=== PATIENT | male | born 1960 | race African-American/Black ===

== ENCOUNTER 2018-10-17 15:31 | Emergency (ER) | payer OTHER ==
[~2018-10-17] VITALS: Ht 160 cm; Wt 75.3 kg
[~2018-10-17 15:31] MED LIST: AMLO10TA8 PO; ATOR40TA PO; Aspirin PO; CLON0.2T PO; LISI-334 PO; METF500T16 PO; RANI150T2 PO; SPIR25TA5 PO; TICA90TA PO
[2018-10-17 15:46] VITALS: BP 186/102
[2018-10-17] MEDS ORDERED: cefTRIAXone IM 1 GM VIAL IM ONE (16:00)
[2018-10-17] MEDS ORDERED: PENI500T PO (16:35)
[2018-10-17] MEDS ORDERED: TRAM-48 PO (16:35)
--- NOTE | 2018-10-17 16:36 | PHYS DOC ---
Past Medical History Past Medical History: Diabetes-Type II, GERD, Hypertension Past Surgical History: Other Additional Past Surgical Histo: Bleeding ulcer Alcohol Use: Occasionally Drug Use: None Adult General Chief Complaint Chief Complaint: DENTAL PROBLEM HPI HPI Patient is a 58 year old male who presents with complaining of facial swelling. Patient complaining of right lower jaw and facial edema for 2 weeks and mild dental pain does fever and chills, problems swallowing, smoking. Patient did not seek medical attention and took [id number] Tylenol with partial improvement of his pain. Review of Systems Review of Systems Constitutional: Denies fever or chills [] Eyes: Denies change in visual acuity, redness, or eye pain [] HENT: Denies nasal congestion or sore throat [] Respiratory: Denies cough or shortness of breath [] Cardiovascular: No additional information not addressed in HPI [] GI: Denies abdominal pain, nausea, vomiting, bloody stools or diarrhea [] : Denies dysuria or hematuria [] Musculoskeletal: Denies back pain or joint pain [] Integument: Denies rash or skin lesions [] Neurologic: Denies headache, focal weakness or sensory changes [] Endocrine: Denies polyuria or polydipsia [] All other systems were reviewed and found to be within normal limits, except as documented in this note. Current Medications Current Medications Current Medications Medications (Trade) Dose Ordered Sig/Ileana Start Time Stop Time Status Last Admin Dose Admin Ceftriaxone Sodium (Rocephin Im) 1 gm 1X ONCE 10/17/18 16:00 10/17/18 16:01 DC 10/17/18 16:29 1 GM Allergies Allergies Allergies Coded Allergies Type Severity Reaction Last Updated Verified shellfish derived Allergy Intermediate 02/03/15 Yes Physical Exam Physical Exam Constitutional: Well developed, well nourished,mild distress, non-toxic appearance. [] HENT: Normocephalic, atraumatic, right lower jaw edema without sign of abscess, poor dental hygiene and several missing tooth and cavities, remaining root on tooth #31 with tenderness and inflamed gum around the rooth, bilateral external ears normal, oropharynx moist, no oral exudates, nose normal. [] Eyes: PERRLA, EOMI, conjunctiva normal, no discharge. [] Neck: Normal range of motion, no tenderness, supple, no stridor. [] Cardiovascular:Heart rate regular rhythm, no murmur [] Lungs & Thorax: Bilateral breath sounds clear to auscultation [] Neurologic: Alert and oriented X 3, normal motor function, normal sensory function, no focal deficits noted. [] Psychologic: Affect normal, judgement normal, mood normal. [] Current Patient Data Vital Signs Vital Signs Date Time Temp Pulse Resp B/P (MAP) Pulse Ox O2 Delivery O2 Flow Rate FiO2 10/17/18 15:46 97.6 74 18 186/102 (130) 96 Room Air 97.6 Lab Values Laboratory Tests Test 10/17/18 16:28 Glucose (Fingerstick) 121 mg/dL (70-99) H EKG EKG [] Radiology/Procedures Radiology/Procedures [] Course & Med Decision Making Course & Med Decision Making Pertinent Labs and Imaging studies reviewed. (See chart for details) Evaluation of patient in ER showed 58-year-old male patient presented with facial cellulitis and dental abscess for 2 weeks. Patient had blood sugar of 121 and treated with Rocephin in ER. Patient was advised to follow-up with the dentist in few days. Dragon Disclaimer Dragon Disclaimer This electronic medical record was generated, in whole or in part, using a voice recognition dictation system. Departure Departure Impression: Primary Impression: Facial cellulitis Additional Impression: Dental abscess Disposition: 01 HOME, SELF-CARE (at 1631) Condition: IMPROVED Referrals: UNKNOWN PCP NAME (PCP) Patient Instructions: Cellulitis, Dental Abscess Additional Instructions: Follow-up with your dentist in 3-5 days Return to ER if not getting better Scripts Tramadol Hcl (ULTRAM) 50 Mg Tablet 50 MG PO Q6HRS PRN for PAIN, #14 TAB 0 Refills Prov: BALDOMERO NICE MD 10/17/18 Penicillin V Potassium (PENICILLIN V POTASSIUM) 500 Mg Tablet 2 TAB PO Q12HR, #40 TAB Prov: BALDOMERO NICE MD 10/17/18 Problem Qualifiers BALDOMERO NICE MD October 17, 2018 16:36
== END 2018-10-17 16:49 | disposition home or self-care (01) ==
LOC: ER 15:31
DX: K04.7 Periapical abscess without sinus (principal); L03.211 Cellulitis of face; E11.9 Type 2 diabetes mellitus without complications; K21.9 Gastro-esophageal reflux disease without esophagitis; I10 Essential (primary) hypertension; Z91.013 Allergy to seafood
CPT/HCPCS: 82962; 96372; 99283; J0696

== ENCOUNTER 2019-09-10 12:34 | Inpatient (IN) | payer OTHER ==
[~2019-09-10] VITALS: Ht 157.5 cm; Wt 75.5 kg
[2019-09-10] VITALS (9 sets, daily range): BP systolic 110–146; BP diastolic 70–85
[~2019-09-10 12:34] MED LIST changes: +PENI500T PO; +TRAM-48 PO
[2019-09-10] MEDS ORDERED: ASPIRIN CHEWABLE 81 MG TABLET. PO ONE (13:00)
[2019-09-10] MEDS ORDERED: KETOROLAC 30 MG/ML VIAL. IV ONE (13:00)
--- NOTE | 2019-09-10 13:21 | RAD ---
EXAM: Chest, single view. HISTORY: Chest pain. COMPARISON: None. FINDINGS: A frontal view of the chest obtained. There is no infiltrate, pleural effusion or pneumothorax. The heart is normal in size. IMPRESSION: No acute pulmonary finding. Electronically signed by: Clarissa Ramirez MD (09/10/2019 1:19 PM) [facility]
[2019-09-10 13:22] LABS: BASO % 1 % (0-3); EOS # 0.2 x10^3/uL (0.0-0.7); EOS % 2 % (0-3); HEMATOCRIT 43.4 % (39.0-53.0); HEMOGLOBIN 14.3 g/dL (13.0-17.5); LYMPH % 19 % (24-48); MEAN CORPUSCULAR HEMOGLOBIN 27 pg (25-35); MEAN CORPUSCULAR HGB CONC 33 g/dL (31-37); MEAN CORPUSCULAR VOLUME 83 fL (79-100); MONO # 0.8 x10^3/uL (0.0-1.1); MONO % 7 % (0-9); NEUT # 7.4 x10^3/uL (1.8-7.7); NEUT % 72 % (31-73); PLATELET COUNT 235 x10^3/uL (140-400); RED BLOOD COUNT 5.26 x10^6/uL (4.30-5.70); RED CELL DISTRIBUTION WIDTH 14.6 % (11.5-14.5); WHITE BLOOD COUNT 10.3 x10^3/uL (4.0-11.0)
--- NOTE | 2019-09-10 13:25 | EKG ---
[facility] [address] [place] [address] Test Date: 2019-09-10 Test Time: 12:44:56 Pat Name: BEN BRISENO Department: Room: Gender: M [employer] Displays Analyst: : [id number] Requested By: NORA MONTELONGO Order Number: [id number] Reading MD: Bear Blue MD Measurements Intervals [place] Rate: 100 P: FL: QRS: 31 QRSD: 92 T: 128 QT: 352 QTc: 457 Interpretive Statements ATRIAL FIB./FLUTTER WITH RAPID VENTRICULAR RESPONSE NON-SPECIFIC ST/T CHANGES Electronically Signed On 09-10-2019 15:16:19 CDT by Bear Blue MD
[2019-09-10 13:31] LABS: CALCIUM 9.3 mg/dL (8.5-10.1); GFR 41.3; POTASSIUM 4.5 mmol/L (3.5-5.1)
[2019-09-10 13:37] LABS: ALBUMIN 3.6 g/dL (3.4-5.0); ALBUMIN/GLOBULIN RATIO 0.9 (1.0-1.7); MAGNESIUM 1.5 mg/dL (1.8-2.4); TOTAL BILIRUBIN 0.3 mg/dL (0.2-1.0); TOTAL PROTEIN 7.4 g/dL (6.4-8.2)
--- NOTE | 2019-09-10 13:45 | PHYS DOC ---
Past Medical History Past Medical History: Diabetes-Type II, GERD, Hypertension Past Surgical History: Other Additional Past Surgical Histo: Bleeding ulcer Smoking Status: Never Smoker Alcohol Use: Occasionally Drug Use: None General Adult EDM: Chief Complaint: CHEST PAIN HPI: HPI: Patient is a 59-year-old male who presents with a 2-day history of left-sided chest pain. He states the pain does not radiate. He has been somewhat short of breath. He denies any nausea or diaphoresis. He states this happens occasionally but not often. There is nothing that he did at home to make the discomfort any better or worse. He describes the pain is relatively sharp. [] Review of Systems: Review of Systems: Constitutional: Denies fever or chills. [] Eyes: Denies change in visual acuity. [] HENT: Denies nasal congestion or sore throat. [] Respiratory: Denies cough or shortness of breath. [] Cardiovascular: Per HPI. [] GI: Denies abdominal pain, nausea, vomiting, bloody stools or diarrhea. [] : Denies dysuria. [] Musculoskeletal: Denies back pain or joint pain. [] Integument: Denies rash. [] Neurologic: Denies headache, focal weakness or sensory changes. [] Endocrine: Denies polyuria or polydipsia. [] Lymphatic: Denies swollen glands. [] Psychiatric: Denies depression or anxiety. [] Heart Score: Risk Factors: Risk Factors: DM, Current or recent (<one month) smoker, HTN, HLP, family history of CAD, obesity. Risk Scores: Score 0 - 3: 2.5% MACE over next 6 weeks - Discharge Home Score 4 - 6: 20.3% MACE over next 6 weeks - Admit for Clinical Observation Score 7 - 10: 72.7% MACE over next 6 weeks - Early Invasive Strategies Current Medications: Current Medications Medications (Trade) Dose Ordered Sig/Ileana Start Time Stop Time Status Last Admin Dose Admin Aspirin (Aspirin Chewable) 324 mg 1X ONCE 09/10/19 13:00 09/10/19 13:01 DC 09/10/19 13:15 324 MG Ketorolac Tromethamine (Toradol 30mg Vial) 30 mg 1X ONCE 09/10/19 13:00 09/10/19 13:04 DC 09/10/19 13:16 30 MG Allergies: Allergies: Allergies Coded Allergies Type Severity Reaction Last Updated Verified shellfish derived Allergy Intermediate 02/03/15 Yes Physical Exam: PE: Constitutional: Well developed, well nourished, mild distress, non-toxic appearance. [] HENT: Normocephalic, atraumatic, bilateral external ears normal, oropharynx moist, no oral exudates, nose normal. [] Eyes: PERRLA, EOMI, conjunctiva normal, no discharge. [] Neck: Normal range of motion, no tenderness, supple, no stridor. [] Cardiovascular: Tachycardic irregularly irregular [] Lungs & Thorax: Bilateral breath sounds clear to auscultation [] Abdomen: Bowel sounds normal, soft, no tenderness, no masses, no pulsatile masses. [] Skin: Warm, dry, no erythema, no rash. [] Back: No tenderness, no CVA tenderness. [] Extremities: No tenderness, no cyanosis, no clubbing, ROM intact, no edema. [] Neurologic: Alert and oriented X 3, normal motor function, normal sensory function, no focal deficits noted. [] Psychologic: Anxious [] Current Patient Data: Labs: Laboratory Tests Test 09/10/19 13:09 White Blood Count 10.3 x10^3/uL (4.0-11.0) Red Blood Count 5.26 x10^6/uL (4.30-5.70) Hemoglobin 14.3 g/dL (13.0-17.5) Hematocrit 43.4 % (39.0-53.0) Mean Corpuscular Volume 83 fL (79-100) Mean Corpuscular Hemoglobin 27 pg (25-35) Mean Corpuscular Hemoglobin Concent 33 g/dL (31-37) Red Cell Distribution Width 14.6 % (11.5-14.5) H Platelet Count 235 x10^3/uL (140-400) Neutrophils (%) (Auto) 72 % (31-73) Lymphocytes (%) (Auto) 19 % (24-48) L Monocytes (%) (Auto) 7 % (0-9) Eosinophils (%) (Auto) 2 % (0-3) Basophils (%) (Auto) 1 % (0-3) Neutrophils # (Auto) 7.4 x10^3/uL (1.8-7.7) Lymphocytes # (Auto) 2.0 x10^3/uL (1.0-4.8) Monocytes # (Auto) 0.8 x10^3/uL (0.0-1.1) Eosinophils # (Auto) 0.2 x10^3/uL (0.0-0.7) Basophils # (Auto) 0.0 x10^3/uL (0.0-0.2) Sodium Level 144 mmol/L (136-145) Potassium Level 4.5 mmol/L (3.5-5.1) Chloride Level 108 mmol/L (98-107) H Carbon Dioxide Level 22 mmol/L (21-32) Anion Gap 14 (6-14) Blood Urea Nitrogen 27 mg/dL (8-26) H Creatinine 2.0 mg/dL (0.7-1.3) H Estimated GFR (Cockcroft-Gault) 41.3 BUN/Creatinine Ratio 14 (6-20) Glucose Level 145 mg/dL (70-99) H Calcium Level 9.3 mg/dL (8.5-10.1) Magnesium Level 1.5 mg/dL (1.8-2.4) L Total Bilirubin 0.3 mg/dL (0.2-1.0) Aspartate Amino Transferase (AST) 20 U/L (15-37) Alanine Aminotransferase (ALT) 30 U/L (16-63) Alkaline Phosphatase 59 U/L (46-116) Total Protein 7.4 g/dL (6.4-8.2) Albumin 3.6 g/dL (3.4-5.0) Albumin/Globulin Ratio 0.9 (1.0-1.7) L Ethyl Alcohol Level < 10 mg/dL (0-10) Laboratory Tests 09/10/19 13:09 Laboratory Tests 09/10/19 13:09 Vital Signs: Vital Signs Date Time Temp Pulse Resp B/P (MAP) Pulse Ox O2 Delivery O2 Flow Rate FiO2 09/10/19 12:40 97.7 98 16 160/89 (112) 99 Room Air 97.7 EKG: EKG: EKG: Atrial fibrillation with rapid ventricular response rate 110 no obvious associated ischemic ST-T changes [] Radiology/Procedures: Radiology/Procedures: [] Impression: REASON: chest pain PROCEDURE: CHEST AP ONLY EXAM: Chest, single view. HISTORY: Chest pain. COMPARISON: None. FINDINGS: A frontal view of the chest obtained. There is no infiltrate, pleural effusion or pneumothorax. The heart is normal in size. IMPRESSION: No acute pulmonary finding. Course & Med Decision Making: Course & Med Decision Making Pertinent Labs and Imaging studies reviewed. (See chart for details) [ED course: Evaluation reveals a 59-year-old male with chest pain ultimately had atrial fibrillation with rapid ventricular response. Patient was given an aspirin Lovenox 1 mg/kg was also given a Cardizem bolus and started on Cardizem drip. Troponin was slightly elevated likely rate related. We will go ahead and admit to the hospitalist with a cardiology consult. CRITICAL CARE: Time spent was 35 minutes. This includes medical management, evaluation, reevaluation, discussion with consultants and family. Critical Care does NOT include time spent on separately billed procedures.] Hakeem Disclaimer: Dragon Disclaimer: This electronic medical record was generated, in whole or in part, using a voice recognition dictation system. Departure Departure Impression: Primary Impression: Atrial fibrillation with rapid ventricular response Additional Impression: NSTEMI (non-ST elevated myocardial infarction) Disposition: 09 ADMITTED INPATIENT Admitting Physician: MILAGRO Condition: GUARDED Referrals: UNKNOWN PCP NAME (PCP) NORA MONTELONGO DO Sep 10, 2019 13:45
[2019-09-10] MEDS ORDERED: DILTIAZEM HCL 125 MG in IV NORMAL SALINE 100ML 100 ML IV PRN (14:00)
[2019-09-10] MEDS ORDERED: ONDANSETRON PF 4 MG/2 ML VIAL. IV PRN (14:00)
[2019-09-10] MEDS ORDERED: dilTIAZem IV PUSH 25 MG/5 ML VIAL IVP ONE (14:00)
[2019-09-10] MEDS ORDERED: ACETAMINOPHEN 325 MG TABLET. PO PRN (14:00)
[2019-09-10] MEDS ORDERED: NITROGLYCERIN SUBLINGUAL 0.4 MG BOTTLE OF 25. SL PRN (14:00)
--- NOTE | 2019-09-10 14:47 | PDOC2 ---
JANELLE JARA WRIST LINER 09/10/19 1447: CARDIAC CONSULT DATE OF CONSULT Date of Consult DATE: 09/10/19 TIME: 14:35 REASON FOR CONSULT Reason for Consult: AFIB RVR, NSTEMI REFERRING PHYSICIAN Referring Physician: Faustino SOURCE Source: Chart review, Patient HISTORY OF PRESENT ILLNESS HISTORY OF PRESENT ILLNESS This is a pleasant 59 yo male admitted for complains of chest pain and palpitations. Reports that Monday he started having sharp mid chest pain that was nonradiating. Positive for palpitations and LUGO. Reports no n/v. Denies any leg swelling, orthopnea or PND. No prior hx of BRAYAN, VTE or arrhythmia. He ispositive for CAD with past stent, HTN, CKD, and HLP and DM. She has not been seen by cardiology and nephrology since 2015 but has been seeing his PCP Dr. Kirby regularly who is providing his refills. His last PUD was 6 yrs ago. He has been complaint with his medications including plavix, ASA, statin, lisinopril. Reported that his BG has been controlled per his last A1C which he said marginal. Reports that he checks his BP at home and per his number its controlled. PAST MEDICAL HISTORY Cardiovascular: CAD, CHF, HTN, Hyperlipidemia Pulmonary: No pertinent hx CENTRAL NERVOUS SYSTEM: Other (No pertinent history) GI: GERD, Peptic Ulcer disease Heme/Onc: No pertinent hx Hepatobiliary: No pertinent hx Psych: No pertinent hx Musculoskeletal: Osteoarthritis Rheumatologic: No pertinent hx Infectious disease: No pertinent hx ENT: No pertinent hx Renal/: Chronic renal insuff (ckd3) Endocrine: Diabetes (2) Dermatology: No pertinent hx PAST SURGICAL HISTORY Past Surgical History: Other (PCI) FAMILY HISTORY Family History: Hypertension SOCIAL HISTORY Smoke: No ALCOHOL: none Drugs: None Lives: with Family CURRENT MEDICATIONS CURRENT MEDICATIONS Current Medications Medications (Trade) Dose Ordered Sig/Ileana Route PRN Reason Start Time Stop Time Status Last Admin Dose Admin Aspirin (Aspirin Chewable) 324 mg 1X ONCE PO 09/10/19 13:00 09/10/19 13:01 DC 09/10/19 13:15 Ketorolac Tromethamine (Toradol 30mg Vial) 30 mg 1X ONCE IV 09/10/19 13:00 09/10/19 13:04 DC 09/10/19 13:16 Diltiazem HCl (Cardizem Iv Push) 20 mg 1X ONCE IVP 09/10/19 14:00 09/10/19 14:01 DC 09/10/19 14:05 Diltiazem HCl 125 mg/Sodium Chloride 125 ml @ 5 mls/hr CONT PRN IV SEE I/O RECORD 09/10/19 14:00 09/10/19 14:05 Enoxaparin Sodium (Lovenox 80mg Syringe) 80 mg 1X ONCE SQ 09/10/19 14:00 09/10/19 14:01 DC 09/10/19 14:06 ALLERGIES ALLERGIES: Coded Allergies: shellfish derived (Verified Allergy, Intermediate, 02/03/15) ROS Review of System 14 point ROS evaluated with pertinent positives noted per HPI PHYSICAL EXAM General: Alert, Oriented X3, Cooperative, No acute distress HEENT: Atraumatic, Mucous membr. moist/pink Lungs: Clear to auscultation, Normal air movement Heart: Other (AFIB) Abdomen: Soft, No tenderness Extremities: No cyanosis, No edema Skin: No breakdown, No significant lesion Neuro: Normal speech, Sensation intact Psych/Mental Status: Mental status NL, Mood NL MUSCULOSKELETAL: Osteoarthritic changes both hands VITALS/I&O VITALS/I&O: Vital Signs Date Time Temp Pulse Resp B/P (MAP) Pulse Ox O2 Delivery O2 Flow Rate FiO2 09/10/19 14:05 121 133/85 09/10/19 12:40 97.7 16 99 Room Air 97.7 LABS Lab: Laboratory Tests Test 09/10/19 13:09 White Blood Count 10.3 x10^3/uL (4.0-11.0) Red Blood Count 5.26 x10^6/uL (4.30-5.70) Hemoglobin 14.3 g/dL (13.0-17.5) Hematocrit 43.4 % (39.0-53.0) Mean Corpuscular Volume 83 fL (79-100) Mean Corpuscular Hemoglobin 27 pg (25-35) Mean Corpuscular Hemoglobin Concent 33 g/dL (31-37) Red Cell Distribution Width 14.6 % (11.5-14.5) H Platelet Count 235 x10^3/uL (140-400) Neutrophils (%) (Auto) 72 % (31-73) Lymphocytes (%) (Auto) 19 % (24-48) L Monocytes (%) (Auto) 7 % (0-9) Eosinophils (%) (Auto) 2 % (0-3) Basophils (%) (Auto) 1 % (0-3) Neutrophils # (Auto) 7.4 x10^3/uL (1.8-7.7) Lymphocytes # (Auto) 2.0 x10^3/uL (1.0-4.8) Monocytes # (Auto) 0.8 x10^3/uL (0.0-1.1) Eosinophils # (Auto) 0.2 x10^3/uL (0.0-0.7) Basophils # (Auto) 0.0 x10^3/uL (0.0-0.2) Sodium Level 144 mmol/L (136-145) Potassium Level 4.5 mmol/L (3.5-5.1) Chloride Level 108 mmol/L (98-107) H Carbon Dioxide Level 22 mmol/L (21-32) Anion Gap 14 (6-14) Blood Urea Nitrogen 27 mg/dL (8-26) H Creatinine 2.0 mg/dL (0.7-1.3) H Estimated GFR (Cockcroft-Gault) 41.3 BUN/Creatinine Ratio 14 (6-20) Glucose Level 145 mg/dL (70-99) H Calcium Level 9.3 mg/dL (8.5-10.1) Magnesium Level 1.5 mg/dL (1.8-2.4) L Total Bilirubin 0.3 mg/dL (0.2-1.0) Aspartate Amino Transferase (AST) 20 U/L (15-37) Alanine Aminotransferase (ALT) 30 U/L (16-63) Alkaline Phosphatase 59 U/L (46-116) Troponin I Quantitative 0.232 ng/mL (0.000-0.055) AT-Vfg-I-Type Natriuretic Peptide 1738 pg/mL (0-124) H Total Protein 7.4 g/dL (6.4-8.2) Albumin 3.6 g/dL (3.4-5.0) Albumin/Globulin Ratio 0.9 (1.0-1.7) L Ethyl Alcohol Level < 10 mg/dL (0-10) Laboratory Tests 09/10/19 13:09 Laboratory Tests 09/10/19 13:09 ECHOCARDIOGRAM ECHOCARDIOGRAM <Conclusion> Normal LV systolic function and wall motion at rest. EF 65% No significant valvular abnormalities. DATE: 02/03/15 1522 HEART CATH HEART CATH CORONARY FINDINGS: LM: is a short large caliber vessel with normal angiographic appearance. LAD: is a moderate caliber vessel with mild luminal irregularities. D1: is a small to moderate caliber bifurcating vessel with mild diffuse irregularities of up to 30% Ramus: is a moderate caliber vessel with normal angiographic appearance. LCx: is a moderate caliber non-dominant vessel with a proximal 80% stenosis. The distal vessel has mild luminal irregularities. Two small obtuse marginal vessels and LPL vessels have mild diffuse irregularities of up to 30%. RCA: is a moderate caliber vessel with long segment of proximal to mid 50% stenosis. PDA: small caliber vessel with mild luminal irregularities. Hemodynamics: LVEDP 16 mm Hg. No LV to AO gradient on pullback. Limited right common femoral angiography revealed a higher than normal bifurcation pattern without significant obstructive disease and suitable anatomy for closure device placement. INTERVENTIONAL TECHNIQUE: PCI OF THE LCX Bivalirudin was used for anticoagulation. Through a 6Fr EBU 4.0 guide catheter, a 0.014'' Prowater wire was advanced to the distal LPL. Next, a Trek 2.5/12 balloon was used to perform angioplasty at a maximum of 12 ethan. The lesion was then stented with a Resolute 2.75/18 ELDA at 12 ethan. Final post-PCI angiography revealed excellent stent expansion with DIDIER 3 flow in the vessel and no evidence of proximal guide or distal wire related complications. The right groin access site was closed with a Mynx José Miguel closure device. The patient had a small hematoma which was resolved with manual pressure. The patient was given 180mg of Ticagrelor in the lab. Total contrast dose: 50 ml Conclusion 1. Normal LVEDP 2. Two vessel coronary artery disease. 3. Successful PCI of the Lcx with implantation of a Resolute 2.75/18 ELDA. Recommendations Cardiac Rehabilitation Referral Aggressive Medical Therapy ASA 81mg daily indefinitely Ticagrelor 90mg bid for 1 month, then switch to Plavix 75mg daily Follow up in cardiology clinic in 4 weeks. If patient continues to have chest pain, could consider PCI of the RCA. DATE: 02/04/15 0959 ASSESSMENT/PLAN ASSESSMENT/PLAN 1. NSTEMI: possibly type 2 demand mediated. CP probably more from AFIB RVR 2. AFIB with RVR: new onset. likely started Monday. Now controlled with cardizem 3. CKD3: baseline Cr at low 2s CrCl 43 4. DM2: on home metformin 5. HTN: controlled 6. HLP 7. CAD; past ELDA to LCx 2014 moderate disease to RCA 8. Iodine allergy: anaphylaxis with shellfish 9. Hx of remote PUD Recommendations 1. Lovenox x1 given in ED. ASA has been given. Plan to continue home plavix and will discuss further tomorrow as far as anticoagulation moving forward. Eliquis vs coumadin 2. Bolus cardizem was given and drip started. Will stop the drip and start on metoprolol q6 po 3. Hold other BP meds for now to allow BB optimization. 4. Continue home statin. Start on low dose daily pepcid for GI prophylaxis. 5. Trend troponin, check TSH and lipids. TTE 6. Will consider for ischemic workup pending clinical trend. HANH BRIGGS MD 09/10/191957: CARDIAC CONSULT ASSESSMENT/PLAN ASSESSMENT/PLAN Patient seen and examined. Agree with TRASH COLLECTOR SUPERVISOR's assessment and plan. NSTEMI most prob demand ischemia AF new onset, rate better controlled Agree with changing CZM to BB Start eliquis for stroke prophylaxis tomorrow since he received lovenox today Check 2D echo to assess LVF Plan outpatient ischemic evaluation Thank you for your consultation JANELLE JARA APRN Sep 10, 2019 14:47 HANH BRIGGS MD Sep 10, 2019 19:58
[2019-09-10] MEDS ORDERED: HYDR-2869 PO (15:55)
[2019-09-10] MEDS ORDERED: METF10007 PO (15:55)
[2019-09-10] MEDS ORDERED: ATOR20TA58 PO (15:55)
[2019-09-10] MEDS ORDERED: FAMO20TA5 PO (15:55)
--- NOTE | 2019-09-10 16:00 | NUR ---
Patient arrived to unit from ER via wheelchair. Patient transferred by himself. Cardizem gtt running at 5mls/hr. Vitals stable. Call light within reach, patient alert and oriented. Will continue to monitor.
[2019-09-10] MEDS: METOPROLOL TART IMMED RELEASE 25 MG TABLET. PO SCH ×2 (17:27→23:07)
[2019-09-10] MEDS ORDERED: DEXTROSE 50% 25 GM / 50ML DISP.SYRIN. IV PRN (17:30)
--- NOTE | 2019-09-10 18:13 | PDOC1 ---
History and Physical Date of Admission Date of Admission DATE: 09/10/19 TIME: 18:07 Identification/Chief Complaint Chief Complaint chest pain, palpitations Source Source: Chart review, Patient History of Present Illness History of Present Illness Mr. Walton is a 59-year-old male who presents with a 2-day history of left-sided chest pain. He states the pain does not radiate. He has been somewhat short of breath. He denies any nausea or diaphoresis. He states this happens occasionally but not often. There is nothing that he did at home to make the discomfort any better or worse. He describes the pain is relatively sharp. Past Medical History Cardiovascular: CAD, CHF, HTN, Hyperlipidemia Pulmonary: No pertinent hx CENTRAL NERVOUS SYSTEM: Other (No pertinent history) GI: GERD, Peptic Ulcer disease Heme/Onc: No pertinent hx Hepatobiliary: No pertinent hx Psych: No pertinent hx Musculoskeletal: Osteoarthritis Rheumatologic: No pertinent hx Infectious disease: No pertinent hx ENT: No pertinent hx Renal/: Chronic renal insuff (ckd3) Endocrine: Diabetes (2) Dermatology: No pertinent hx Past Surgical History Past Surgical History: Other (PCI) Family History Family History: Hypertension Social History Smoke: No ALCOHOL: none Drugs: None Current Problem List Problem List Problems Medical Problems: (1) Atrial fibrillation with rapid ventricular response Status: Acute (2) NSTEMI (non-ST elevated myocardial infarction) Status: Acute Current Medications Current Medications Current Medications Aspirin (Aspirin Chewable) 324 mg 1X ONCE PO Last administered on 09/10/19at 13:15; Start 09/10/19 at 13:00; Stop 09/10/19 at 13:01; Status DC Ketorolac Tromethamine (Toradol 30mg Vial) 30 mg 1X ONCE IV Last administered on 09/10/19at 13:16; Start 09/10/19 at 13:00; Stop 09/10/19 at 13:04; Status DC Diltiazem HCl (Cardizem Iv Push) 20 mg 1X ONCE IVP Last administered on 09/10/19at 14:05; Start 09/10/19 at 14:00; Stop 09/10/19 at 14:01; Status DC Diltiazem HCl 125 mg/Sodium Chloride 125 ml @ 5 mls/hr CONT PRN IV SEE I/O RECORD Last administered on 09/10/19at 14:05; Start 09/10/19 at 14:00; Stop 09/10/19 at 15:35; Status DC Enoxaparin Sodium (Lovenox 80mg Syringe) 80 mg 1X ONCE SQ Last administered on 09/10/19at 14:06; Start 09/10/19 at 14:00; Stop 09/10/19 at 14:01; Status DC Ondansetron HCl (Zofran) 4 mg PRN Q8HRS PRN IV NAUSEA/VOMITING; Start 09/10/19 at 14:00; Stop 09/11/19 at 13:59 Acetaminophen (Tylenol) 650 mg PRN Q4HRS PRN PO FEVER; Start 09/10/19 at 14:00; Stop 09/11/19 at 13:59 Nitroglycerin (Nitrostat) 0.4 mg PRN Q5MIN PRN SL CHEST PAIN; Start 09/10/19 at 14:00; Stop 09/11/19 at 13:59 Atorvastatin Calcium (Lipitor) 40 mg QHS PO ; Start 09/10/19 at 21:00 Aspirin (Ecotrin) 81 mg DAILYWBKFT PO ; Start 09/11/19 at 08:00; Stop 09/10/19 at 15:34; Status DC Metoprolol Tartrate (Lopressor) 25 mg Q6HRS PO Last administered on 09/10/19at 17:27; Start 09/10/19 at 18:00 Famotidine (Pepcid) 20 mg QHS PO ; Start 09/10/19 at 21:00 Amlodipine Besylate (Norvasc) 10 mg DAILY PO ; Start 09/11/19 at 09:00; Stop 09/10/19 at 17:45; Status DC Atorvastatin Calcium (Lipitor) 20 mg QHS PO ; Start 09/10/19 at 21:00; Status Cancel Clonidine HCl (Catapres) 0.2 mg BID PO ; Start 09/10/19 at 21:00; Status UNV Famotidine (Pepcid) 20 mg DAILY PO ; Start 09/11/19 at 09:00; Status Cancel Hydralazine HCl (Apresoline) 50 mg BID PO ; Start 09/10/19 at 21:00; Stop 09/10/19 at 17:45; Status DC Lisinopril (Prinivil) 20 mg DAILY PO ; Start 09/11/19 at 09:00; Stop 09/10/19 at 17:45; Status DC Non-Formulary Medication (Metformin Hcl ) 1 tab BID PO ; Start 09/10/19 at 21:00; Status UNV Insulin Human Lispro (HumaLOG) 0-9 UNITS TIDWMEALS SQ ; Start 09/11/19 at 08:00 Dextrose (Dextrose 50%-Water Syringe) 12.5 gm PRN Q15MIN PRN IV SEE COMMENTS; Start 09/10/19 at 17:30 Active Scripts Active [Aspirin] 81 MG Tablet. 81 Mg PO DAILYWBKFT Reported Metformin Hcl 1,000 Mg Tablet 1 Tab PO BID Hydralazine Hcl 50 Mg Tablet 1 Tab PO BID Famotidine 20 Mg Tablet 1 Tab PO DAILY Atorvastatin Calcium 20 Mg Tablet 20 Mg PO QHS Amlodipine Besylate 10 Mg Tablet 1 Tab PO DAILY Clonidine Hcl 0.2 Mg Tablet 0.2 Mg PO BID Lisinopril 20 Mg Tablet 1 Tab PO DAILY Allergies Allergies: Coded Allergies: shellfish derived (Verified Allergy, Intermediate, 02/03/15) ROS General: No: Chills, Night Sweats, Malaise, Appetite, Other PSYCHOLOGICAL ROS: No: Anxiety, Behavioral Disorder, Concentration difficultie, Decreased libido, Depression, Disorientation, Hallucinations, Hostility, Irritablity, Memory difficulties, Mood Swings, Obsessive thoughts, Physical abuse, Sexual abuse, Sleep disturbances, Suicidal ideation, Other Eyes: No Blurry vision, No Decreased vision, No Double vision, No Dry eyes, No Excessive tearing, No Eye Pain, No Itchy Eyes, No Loss of vision, No Photophobia, No Scotomata, No Uses contacts, No Uses glasses, No Other HEENT: No: Heacaches, Visual Changes, Hearing change, Nasal congestion, Nasal discharge, Oral lesions, Sinus pain, Sore Throat, Epistaxis, Sneezing, Snoring, Tinnitus, Vertigo, Vocal changes, Other Respiratory: No: Cough, Hemoptysis, Orthopnea, Pleuritic Pain, Shortness of breath, SOB with excertion, Sputum Changes, Stridor, Tachypnea, Wheezing, Other Cardiovascular: No Chest Pain, No Palpitations, No Orthopnea, No Paroxysmal Noc. Dyspnea, No Edema, No Lt Headedness, No Other Gastrointestinal: No Nausea, No Vomiting, No Abdominal Pain, No Diarrhea, No Constipation, No Melena, No Hematochezia, No Other Genitourinary: No Dysuria, No Frequency, No Incontinence, No Hematuria, No Retention, No Discharge, No Urgency, No Pain, No Flank Pain, No Other, No , No , No , No , No , No , No Musculoskeletal: No Gait Disturbance, No Joint Pain, No Joint Stiffness, No Joint Swelling, No Muscle Pain, No Muscular Weakness, No Pain In:, No Swelling In:, No Other Neurological: No Behavorial Changes, No Bowel/Bladder ControlChng, No Confusion, No Dizziness, No Gait Disturbance, No Headaches, No Impaired Coord/balance, No Memory Loss, No Numbness/Tingling, No Seizures, No Speech Problems, No Tremors, No Visual Changes, No Weakness, No Other Skin: Yes Dry Skin; No Eczema, No Hair Changes, No Lumps, No Mole Changes, No Mottling, No Nail Changes, No Pruritus, No Rash, No Skin Lesion Changes, No Other, No Acne Physical Exam General: Alert, Oriented X3, Cooperative, mild distress HEENT: Atraumatic, PERRLA, Mucous membr. moist/pink Lungs: Clear to auscultation, Normal air movement Heart: no murmurs, irregularly irregular Abdomen: Normal bowel sounds, Soft Rectal Exam: not examined Extremities: No clubbing, No edema, Normal pulses Skin: No significant lesion Neuro: Normal speech, Normal tone Psych/Mental Status: Mental status NL, Mood NL Vitals Vitals Vital Signs Date Time Temp Pulse Resp B/P (MAP) Pulse Ox O2 Delivery O2 Flow Rate FiO2 09/10/19 17:27 78 113/70 09/10/19 15:30 Room Air 09/10/19 15:15 97.5 18 96 97.5 Labs Labs Laboratory Tests Test 09/10/19 13:09 09/10/19 16:55 09/10/19 17:05 White Blood Count 10.3 x10^3/uL (4.0-11.0) Red Blood Count 5.26 x10^6/uL (4.30-5.70) Hemoglobin 14.3 g/dL (13.0-17.5) Hematocrit 43.4 % (39.0-53.0) Mean Corpuscular Volume 83 fL (79-100) Mean Corpuscular Hemoglobin 27 pg (25-35) Mean Corpuscular Hemoglobin Concent 33 g/dL (31-37) Red Cell Distribution Width 14.6 % (11.5-14.5) Platelet Count 235 x10^3/uL (140-400) Neutrophils (%) (Auto) 72 % (31-73) Lymphocytes (%) (Auto) 19 % (24-48) Monocytes (%) (Auto) 7 % (0-9) Eosinophils (%) (Auto) 2 % (0-3) Basophils (%) (Auto) 1 % (0-3) Neutrophils # (Auto) 7.4 x10^3/uL (1.8-7.7) Lymphocytes # (Auto) 2.0 x10^3/uL (1.0-4.8) Monocytes # (Auto) 0.8 x10^3/uL (0.0-1.1) Eosinophils # (Auto) 0.2 x10^3/uL (0.0-0.7) Basophils # (Auto) 0.0 x10^3/uL (0.0-0.2) Sodium Level 144 mmol/L (136-145) Potassium Level 4.5 mmol/L (3.5-5.1) Chloride Level 108 mmol/L (98-107) Carbon Dioxide Level 22 mmol/L (21-32) Anion Gap 14 (6-14) Blood Urea Nitrogen 27 mg/dL (8-26) Creatinine 2.0 mg/dL (0.7-1.3) Estimated GFR (Cockcroft-Gault) 41.3 BUN/Creatinine Ratio 14 (6-20) Glucose Level 145 mg/dL (70-99) Calcium Level 9.3 mg/dL (8.5-10.1) Magnesium Level 1.5 mg/dL (1.8-2.4) Total Bilirubin 0.3 mg/dL (0.2-1.0) Aspartate Amino Transf (AST/SGOT) 20 U/L (15-37) Alanine Aminotransferase (ALT/SGPT) 30 U/L (16-63) Alkaline Phosphatase 59 U/L (46-116) Troponin I Quantitative 0.232 ng/mL (0.000-0.055) 0.204 ng/mL (0.000-0.055) AP-Vyo-Q-Type Natriuretic Peptide 1738 pg/mL (0-124) Total Protein 7.4 g/dL (6.4-8.2) Albumin 3.6 g/dL (3.4-5.0) Albumin/Globulin Ratio 0.9 (1.0-1.7) Thyroid Stimulating Hormone (TSH) 0.454 uIU/mL (0.358-3.74) Ethyl Alcohol Level < 10 mg/dL (0-10) Glucose (Fingerstick) 123 mg/dL (70-99) Laboratory Tests Test 09/10/19 13:09 09/10/19 16:55 09/10/19 17:05 White Blood Count 10.3 x10^3/uL (4.0-11.0) Red Blood Count 5.26 x10^6/uL (4.30-5.70) Hemoglobin 14.3 g/dL (13.0-17.5) Hematocrit 43.4 % (39.0-53.0) Mean Corpuscular Volume 83 fL (79-100) Mean Corpuscular Hemoglobin 27 pg (25-35) Mean Corpuscular Hemoglobin Concent 33 g/dL (31-37) Red Cell Distribution Width 14.6 % (11.5-14.5) Platelet Count 235 x10^3/uL (140-400) Neutrophils (%) (Auto) 72 % (31-73) Lymphocytes (%) (Auto) 19 % (24-48) Monocytes (%) (Auto) 7 % (0-9) Eosinophils (%) (Auto) 2 % (0-3) Basophils (%) (Auto) 1 % (0-3) Neutrophils # (Auto) 7.4 x10^3/uL (1.8-7.7) Lymphocytes # (Auto) 2.0 x10^3/uL (1.0-4.8) Monocytes # (Auto) 0.8 x10^3/uL (0.0-1.1) Eosinophils # (Auto) 0.2 x10^3/uL (0.0-0.7) Basophils # (Auto) 0.0 x10^3/uL (0.0-0.2) Sodium Level 144 mmol/L (136-145) Potassium Level 4.5 mmol/L (3.5-5.1) Chloride Level 108 mmol/L (98-107) Carbon Dioxide Level 22 mmol/L (21-32) Anion Gap 14 (6-14) Blood Urea Nitrogen 27 mg/dL (8-26) Creatinine 2.0 mg/dL (0.7-1.3) Estimated GFR (Cockcroft-Gault) 41.3 BUN/Creatinine Ratio 14 (6-20) Glucose Level 145 mg/dL (70-99) Calcium Level 9.3 mg/dL (8.5-10.1) Magnesium Level 1.5 mg/dL (1.8-2.4) Total Bilirubin 0.3 mg/dL (0.2-1.0) Aspartate Amino Transf (AST/SGOT) 20 U/L (15-37) Alanine Aminotransferase (ALT/SGPT) 30 U/L (16-63) Alkaline Phosphatase 59 U/L (46-116) Troponin I Quantitative 0.232 ng/mL (0.000-0.055) 0.204 ng/mL (0.000-0.055) ZY-Smm-M-Type Natriuretic Peptide 1738 pg/mL (0-124) Total Protein 7.4 g/dL (6.4-8.2) Albumin 3.6 g/dL (3.4-5.0) Albumin/Globulin Ratio 0.9 (1.0-1.7) Thyroid Stimulating Hormone (TSH) 0.454 uIU/mL (0.358-3.74) Ethyl Alcohol Level < 10 mg/dL (0-10) Glucose (Fingerstick) 123 mg/dL (70-99) VTE Prophylaxis Ordered VTE Prophylaxis Devices: Yes VTE Pharmacological Prophylaxi: Yes Assessment/Plan Assessment/Plan chest pain, angina atrial fibrillation with RVR NSTEMI 2, demand w acute diastolic CHF CAD, prior stents CKD 3, hold metformin Dm2 admit with cardizem gtt CV consult RAIN QUACH MD Sep 10, 2019 18:13
[2019-09-10] MEDS ORDERED: MAGNESIUM SULFATE 2GM 50 ML IV ONE (18:15)
[2019-09-10] MEDS: IV NORMAL SALINE 1000ML BAG 1,000 ML IV SCH (18:34)
[2019-09-10] MEDS ORDERED: NON FORMULARY ITEM (Metformin Hcl 1 TAB) PO SCH (21:00)
[2019-09-10] MEDS ORDERED: FAMOTIDINE 20 MG TABLET. PO SCH (21:00)
[2019-09-10] MEDS ORDERED: cloNIDine HCL 0.2 MG TABLET PO SCH (21:00)
[2019-09-10] MEDS ORDERED: ATORVASTATIN CALCIUM 20 MG TABLET PO SCH (21:00)
[2019-09-10] MEDS ORDERED: ATORVASTATIN CALCIUM 40 MG TABLET. PO SCH (21:00)
[2019-09-11 03:45] VITALS: BP 124/94
[2019-09-11 03:55] LABS: BASO # 0.1 x10^3/uL (0.0-0.2); BASO % 1 % (0-3); EOS # 0.3 x10^3/uL (0.0-0.7); EOS % 3 % (0-3); HEMATOCRIT 44.3 % (39.0-53.0); HEMOGLOBIN 14.5 g/dL (13.0-17.5); LYMPH # 2.8 x10^3/uL (1.0-4.8); LYMPH % 30 % (24-48); MEAN CORPUSCULAR HEMOGLOBIN 27 pg (25-35); MEAN CORPUSCULAR HGB CONC 33 g/dL (31-37); MEAN CORPUSCULAR VOLUME 83 fL (79-100); MONO # 0.7 x10^3/uL (0.0-1.1); MONO % 7 % (0-9); NEUT # 5.4 x10^3/uL (1.8-7.7); NEUT % 58 % (31-73); PLATELET COUNT 238 x10^3/uL (140-400); RED BLOOD COUNT 5.34 x10^6/uL (4.30-5.70); RED CELL DISTRIBUTION WIDTH 14.4 % (11.5-14.5); WHITE BLOOD COUNT 9.2 x10^3/uL (4.0-11.0)
[2019-09-11 04:26] LABS: ALBUMIN 3.3 g/dL (3.4-5.0); ALBUMIN/GLOBULIN RATIO 0.8 (1.0-1.7); CALCIUM 8.6 mg/dL (8.5-10.1); CREATININE 1.9 mg/dL (0.7-1.3); GFR 43.8; POTASSIUM 4.2 mmol/L (3.5-5.1); TOTAL BILIRUBIN 0.2 mg/dL (0.2-1.0); TOTAL PROTEIN 7.3 g/dL (6.4-8.2)
[2019-09-11 04:31] LABS: CHOLESTEROL/HDL RATIO 3.6
[2019-09-11] MEDS: METOPROLOL TART IMMED RELEASE 25 MG TABLET. PO SCH (05:22)
[2019-09-11] MEDS: IV NORMAL SALINE 1000ML BAG 1,000 ML IV SCH (05:22)
[2019-09-11 07:00] VITALS: BP 123/83
[2019-09-11] MEDS: INSULIN LISPRO 300 UNITS/3 ML VIAL. SQ SCH ×2 (08:00→12:00)
[2019-09-11] MEDS ORDERED: ASPIRIN ENTERIC COATED 81 MG TABLET.DR. PO SCH (08:00)
[2019-09-11] MEDS ORDERED: FAMOTIDINE 20 MG TABLET. PO SCH (09:00)
[2019-09-11] MEDS ORDERED: amLODIPine BESYLATE 10 MG TABLET PO SCH (09:00)
[2019-09-11] MEDS ORDERED: ENOXAPARIN 40 MG/0.4 ML SYRINGE. SQ SCH (09:00)
[2019-09-11] MEDS ORDERED: LISINOPRIL 20 MG TABLET PO SCH (09:00)
--- NOTE | 2019-09-11 09:39 | CARD ---
MR#: [id number] Date of Study: 09/11/2019 Ordering Physician: JANELLE JARA, Referring Physician: JANELLE JARA, Tech: Delia Carrillo POOJA APPROVED REPORT EXAM: Two-dimensional and M-mode echocardiogram with Doppler and color Doppler. Other Information Quality : Good Rhythm : Atrial Fibrillation INDICATION Abnormal ECG Cardiac Disease: CAD Non STEMI RISK FACTORS Hypertension Hyperlipidemia 2D DIMENSIONS RVDd2.4 (2.9-3.5cm)Left Atrium(2D)3.2 (1.6-4.0cm) IVSd1.8 (0.7-1.1cm)Aortic Root(2D)3.0 (2.0-3.7cm) LVDd3.7 (3.9-5.9cm)LVOT Diameter2.0 (1.8-2.4cm) PWd1.2 (0.7-1.1cm)LVDs2.2 (2.5-4.0cm) FS (%) 30.0 %SV41.3 ml LVEF(%)60.0 (>50%) Aortic Valve AoV Peak Migule.94.8cm/sAoV VTI13.8cm AO Peak GR.3.6mmHgLVOT Peak Miguel.90.3cm/s AO Mean GR.2mmHgAVA (VMAX)3.02cm2 SETH (VTI)3.01aq0LE P 1/2 [id number] Mitral Valve MV E Khsklshi07.7cm/sMV DECEL [id number] MV A Velocity2.3cm/sE/A Ratio42.9 Tricuspid Valve TR P. Zlbmivkq011nk/sRAP AQPXVNUP1zsHg TR Peak Gr.10nnOiVYDJ28peIj Pulmonary Vein S1 Voiouafg96.1cm/sD2 Rcyptpbw92.1cm/s LEFT VENTRICLE The left ventricle is normal size. There is moderate concentric left ventricular hypertrophy. The lef t ventricular systolic function is normal and the ejection fraction is within normal range. The Eject ion Fraction is 60-65%. There is normal LV segmental wall motion. Tissue Doppler imaging reveals mode rate left ventricular diastolic dysfunction. RIGHT VENTRICLE The right ventricle is normal size. The right ventricular systolic function is normal. ATRIA The left atrium size is normal. The right atrium size is normal. There is an atrial level left to rig ht shunt noted on color doppler imaging. AORTIC VALVE The aortic valve is mildly thickened but opens well. Doppler and Color Flow revealed mild aortic regu rgitation. There is no significant aortic valvular stenosis. MITRAL VALVE The mitral valve is calcified but opens well. There is no evidence of mitral valve prolapse. There is no mitral valve stenosis. Doppler and Color-flow revealed mild mitral regurgitation. TRICUSPID VALVE The tricuspid valve is normal in structure and function. Doppler and Color Flow revealed trace tricus pid regurgitation. The PA pressure was estimated at 23 mmHg. There is no tricuspid valve stenosis. PULMONIC VALVE The pulmonic valve is not well visualized. Doppler and Color Flow revealed trace to mild pulmonic ruthie vular regurgitation. There is no pulmonic valvular stenosis. GREAT VESSELS The aortic root is normal in size. The ascending aorta is mildly dilated at 3.5 cm. The IVC is normal in size and collapses >50% with inspiration. PERICARDIAL EFFUSION There is no evidence of significant pericardial effusion. Critical Notification Critical Value: No <Conclusion> The left ventricular systolic function is normal and the ejection fraction is within normal range. Th e Ejection Fraction is 60-65%. There is normal LV segmental wall motion. There is moderate concentric left ventricular hypertrophy. There is an atrial level left to right shunt noted on color doppler imaging suggestive of either a PF O or ASD. Doppler and Color Flow revealed mild aortic regurgitation. The ascending aorta is mildly dilated at 3.5 cm. Signed by : Bear Blue, Electronically Approved : 09/11/2019 09:39:10
[2019-09-11 11:00] VITALS: BP 138/92
[2019-09-11] MEDS ORDERED: CLOPIDOGREL BISULFATE 75 MG TABLET PO ONE (11:30)
--- NOTE | 2019-09-11 11:32 | PDOC ---
JANELLE JARA PHYSICAL METALLURGIST 09/11/19 1132: CARDIO Progress Notes Date and Time Date of Service 09/11/2019 Time of Evaluation 1000 Subjective Subjective: No Chest Pain, No shortness of breath, No Palpitations Vitals Vitals Vital Signs Date Time Temp Pulse Resp B/P (MAP) Pulse Ox O2 Delivery O2 Flow Rate FiO2 09/11/19 07:00 97.8 66 20 123/83 (96) 96 Room Air 97.8 Weight Weight [ ] Input and Output Intake and Output Intake and Output 09/11/19 07:00 Intake Total 740 ml Output Total 450 ml Balance 290 ml Intake Oral 740 ml Output Urine Total 450 ml Laboratory Labs Laboratory Tests Test 09/10/19 13:09 09/10/19 16:55 09/10/19 17:05 09/10/19 20:23 White Blood Count 10.3 x10^3/uL (4.0-11.0) Red Blood Count 5.26 x10^6/uL (4.30-5.70) Hemoglobin 14.3 g/dL (13.0-17.5) Hematocrit 43.4 % (39.0-53.0) Mean Corpuscular Volume 83 fL (79-100) Mean Corpuscular Hemoglobin 27 pg (25-35) Mean Corpuscular Hemoglobin Concent 33 g/dL (31-37) Red Cell Distribution Width 14.6 % (11.5-14.5) Platelet Count 235 x10^3/uL (140-400) Neutrophils (%) (Auto) 72 % (31-73) Lymphocytes (%) (Auto) 19 % (24-48) Monocytes (%) (Auto) 7 % (0-9) Eosinophils (%) (Auto) 2 % (0-3) Basophils (%) (Auto) 1 % (0-3) Neutrophils # (Auto) 7.4 x10^3/uL (1.8-7.7) Lymphocytes # (Auto) 2.0 x10^3/uL (1.0-4.8) Monocytes # (Auto) 0.8 x10^3/uL (0.0-1.1) Eosinophils # (Auto) 0.2 x10^3/uL (0.0-0.7) Basophils # (Auto) 0.0 x10^3/uL (0.0-0.2) Sodium Level 144 mmol/L (136-145) Potassium Level 4.5 mmol/L (3.5-5.1) Chloride Level 108 mmol/L (98-107) Carbon Dioxide Level 22 mmol/L (21-32) Anion Gap 14 (6-14) Blood Urea Nitrogen 27 mg/dL (8-26) Creatinine 2.0 mg/dL (0.7-1.3) Estimated GFR (Cockcroft-Gault) 41.3 BUN/Creatinine Ratio 14 (6-20) Glucose Level 145 mg/dL (70-99) Calcium Level 9.3 mg/dL (8.5-10.1) Magnesium Level 1.5 mg/dL (1.8-2.4) Total Bilirubin 0.3 mg/dL (0.2-1.0) Aspartate Amino Transf (AST/SGOT) 20 U/L (15-37) Alanine Aminotransferase (ALT/SGPT) 30 U/L (16-63) Alkaline Phosphatase 59 U/L (46-116) Troponin I Quantitative 0.232 ng/mL (0.000-0.055) 0.204 ng/mL (0.000-0.055) XP-Aei-Q-Type Natriuretic Peptide 1738 pg/mL (0-124) Total Protein 7.4 g/dL (6.4-8.2) Albumin 3.6 g/dL (3.4-5.0) Albumin/Globulin Ratio 0.9 (1.0-1.7) Thyroid Stimulating Hormone (TSH) 0.454 uIU/mL (0.358-3.74) Ethyl Alcohol Level < 10 mg/dL (0-10) Glucose (Fingerstick) 123 mg/dL (70-99) 158 mg/dL (70-99) Test 09/10/19 20:25 09/11/19 03:20 09/11/19 07:45 Troponin I Quantitative 0.204 ng/mL (0.000-0.055) White Blood Count 9.2 x10^3/uL (4.0-11.0) Red Blood Count 5.34 x10^6/uL (4.30-5.70) Hemoglobin 14.5 g/dL (13.0-17.5) Hematocrit 44.3 % (39.0-53.0) Mean Corpuscular Volume 83 fL (79-100) Mean Corpuscular Hemoglobin 27 pg (25-35) Mean Corpuscular Hemoglobin Concent 33 g/dL (31-37) Red Cell Distribution Width 14.4 % (11.5-14.5) Platelet Count 238 x10^3/uL (140-400) Neutrophils (%) (Auto) 58 % (31-73) Lymphocytes (%) (Auto) 30 % (24-48) Monocytes (%) (Auto) 7 % (0-9) Eosinophils (%) (Auto) 3 % (0-3) Basophils (%) (Auto) 1 % (0-3) Neutrophils # (Auto) 5.4 x10^3/uL (1.8-7.7) Lymphocytes # (Auto) 2.8 x10^3/uL (1.0-4.8) Monocytes # (Auto) 0.7 x10^3/uL (0.0-1.1) Eosinophils # (Auto) 0.3 x10^3/uL (0.0-0.7) Basophils # (Auto) 0.1 x10^3/uL (0.0-0.2) Sodium Level 140 mmol/L (136-145) Potassium Level 4.2 mmol/L (3.5-5.1) Chloride Level 106 mmol/L (98-107) Carbon Dioxide Level 23 mmol/L (21-32) Anion Gap 11 (6-14) Blood Urea Nitrogen 28 mg/dL (8-26) Creatinine 1.9 mg/dL (0.7-1.3) Estimated GFR (Cockcroft-Gault) 43.8 BUN/Creatinine Ratio 15 (6-20) Glucose Level 137 mg/dL (70-99) Calcium Level 8.6 mg/dL (8.5-10.1) Total Bilirubin 0.2 mg/dL (0.2-1.0) Aspartate Amino Transf (AST/SGOT) 17 U/L (15-37) Alanine Aminotransferase (ALT/SGPT) 28 U/L (16-63) Alkaline Phosphatase 58 U/L (46-116) Total Protein 7.3 g/dL (6.4-8.2) Albumin 3.3 g/dL (3.4-5.0) Albumin/Globulin Ratio 0.8 (1.0-1.7) Triglycerides Level 360 mg/dL (0-150) Cholesterol Level 101 mg/dL (0-200) LDL Cholesterol, Calculated 1 mg/dL (0-100) VLDL Cholesterol, Calculated 72 mg/dL (0-40) Non-HDL Cholesterol Calculated 73 mg/dL (0-129) HDL Cholesterol 28 mg/dL (40-60) Cholesterol/HDL Ratio 3.6 Glucose (Fingerstick) 133 mg/dL (70-99) Physical Exam HEENT: Neck Supple W Full Motion Chest: Symmetric LUNGS: Clear to Auscultation Heart: S1S2, no murmurs, irregularly irregular (AFIB rate controlled) Abdomen: Soft N/T Extremities: No Edema, No Calf Tenderness Neurology: alert, oriented, follow commands Assessment Assessment 1. NSTEMI: possibly type 2 demand mediated. CP probably more from AFIB RVR. EF and WM nml 2. AFIB with RVR: new onset, rate now controlled 3. CKD3 4. DM2: on home metformin, per PCP 5. HTN: controlled, normotensive 6. HLP 7. CAD; past ELDA to LCx 2014 moderate disease to RCA 8. Iodine allergy: anaphylaxis with shellfish 9. Hx of remote PUD Recommendations 1. Discussed anticoagulation. Risks and benefits. OK with eliquis for stroke prevention. [facility] provide discount card. No further home ASA will continue with plavix for his CAD. 2. Continue with metoprolol tartrate at 50 mg po bid. Continue home lisinopril.. Hold home hydralazine/norvasc for now. HBPM bid in the next week and will slowly reintroduce other BP meds as an outpt per BP trend. Unclear if he is still on clonidine, will verify. 3. Continue home statin. Low dose pepcid for GI prophylaxis. 5. There is an atrial level left to right shunt noted on color doppler imaging suggestive of either a PFO or ASD. Will consider for ANKIT as an outpt for further delineation. 6. Outpt stress test. Follow up with Dr. Blue on October 10. May DC per cardiac standpoint. If still on AFIB on his follow up then will arrange for outpt CVN along with ANKIT. PUNEET MORELAND MD 09/11/19 5240: CARDIO Progress Notes Assessment Assessment Patient seen and evaluated. NSTEMI: possibly type 2 demand mediated. CP probably more from AFIB RVR. EF and WM nml. CV stable. Outpt ischemia testing. AFIB with RVR: new onset, rate now controlled. Eliquis as above. CKD3 DM2: on home metformin, per PCP HTN: controlled, normotensive HLP. Continue statins. CAD; past ELDA to LCx 2014 moderate disease to RCA Atrial level L to R shunt. Will consider for ANKIT on follow up. JANELLE JARA PHYSICAL METALLURGIST Sep 11, 2019 11:32 PUNEET MORELAND MD Sep 11, 2019 16:50
[2019-09-11] MEDS ORDERED: METO50TA6 PO (11:38)
[2019-09-11] MEDS ORDERED: APIX5TAB PO (11:38)
[2019-09-11] MEDS ORDERED: CLOP75TA PO (11:38)
[2019-09-11] MEDS ORDERED: METOPROLOL TART IMMED RELEASE 25 MG TABLET. PO ONE (12:00)
--- NOTE | 2019-09-11 13:20 | PDOC3 ---
Discharge Summary Visit Information Date of Admission: Sep 10, 2019 Date of Discharge: Sep 11, 2019 Final Diagnosis 1. NSTEMI: type 2 demand 2. acute diastolic CHF from AFIB with RVR: new onset, rate now controlled 3. CKD3 4. DM2: will DC metformin for renal fxn 5. hypertension and hyperlipids, and Hx of CAD Problems Medical Problems: (1) Atrial fibrillation with rapid ventricular response Status: Acute (2) NSTEMI (non-ST elevated myocardial infarction) Status: Acute Brief Hospital Course Allergies Allergies Coded Allergies Type Severity Reaction Last Updated Verified shellfish derived Allergy Intermediate 02/03/15 Yes Vital Signs Vital Signs Date Time Temp Pulse Resp B/P (MAP) Pulse Ox O2 Delivery O2 Flow Rate FiO2 09/11/19 11:00 98.1 67 20 138/92 (107) 98 Room Air 98.1 Lab Results Laboratory Tests Test 09/10/19 13:09 09/10/19 16:55 09/10/19 17:05 09/10/19 20:23 White Blood Count 10.3 x10^3/uL (4.0-11.0) Red Blood Count 5.26 x10^6/uL (4.30-5.70) Hemoglobin 14.3 g/dL (13.0-17.5) Hematocrit 43.4 % (39.0-53.0) Mean Corpuscular Volume 83 fL (79-100) Mean Corpuscular Hemoglobin 27 pg (25-35) Mean Corpuscular Hemoglobin Concent 33 g/dL (31-37) Red Cell Distribution Width 14.6 % (11.5-14.5) Platelet Count 235 x10^3/uL (140-400) Neutrophils (%) (Auto) 72 % (31-73) Lymphocytes (%) (Auto) 19 % (24-48) Monocytes (%) (Auto) 7 % (0-9) Eosinophils (%) (Auto) 2 % (0-3) Basophils (%) (Auto) 1 % (0-3) Neutrophils # (Auto) 7.4 x10^3/uL (1.8-7.7) Lymphocytes # (Auto) 2.0 x10^3/uL (1.0-4.8) Monocytes # (Auto) 0.8 x10^3/uL (0.0-1.1) Eosinophils # (Auto) 0.2 x10^3/uL (0.0-0.7) Basophils # (Auto) 0.0 x10^3/uL (0.0-0.2) Sodium Level 144 mmol/L (136-145) Potassium Level 4.5 mmol/L (3.5-5.1) Chloride Level 108 mmol/L (98-107) Carbon Dioxide Level 22 mmol/L (21-32) Anion Gap 14 (6-14) Blood Urea Nitrogen 27 mg/dL (8-26) Creatinine 2.0 mg/dL (0.7-1.3) Estimated GFR (Cockcroft-Gault) 41.3 BUN/Creatinine Ratio 14 (6-20) Glucose Level 145 mg/dL (70-99) Calcium Level 9.3 mg/dL (8.5-10.1) Magnesium Level 1.5 mg/dL (1.8-2.4) Total Bilirubin 0.3 mg/dL (0.2-1.0) Aspartate Amino Transf (AST/SGOT) 20 U/L (15-37) Alanine Aminotransferase (ALT/SGPT) 30 U/L (16-63) Alkaline Phosphatase 59 U/L (46-116) Troponin I Quantitative 0.232 ng/mL (0.000-0.055) 0.204 ng/mL (0.000-0.055) YP-Imw-E-Type Natriuretic Peptide 1738 pg/mL (0-124) Total Protein 7.4 g/dL (6.4-8.2) Albumin 3.6 g/dL (3.4-5.0) Albumin/Globulin Ratio 0.9 (1.0-1.7) Thyroid Stimulating Hormone (TSH) 0.454 uIU/mL (0.358-3.74) Ethyl Alcohol Level < 10 mg/dL (0-10) Glucose (Fingerstick) 123 mg/dL (70-99) 158 mg/dL (70-99) Test 09/10/19 20:25 09/11/19 03:20 09/11/19 07:45 09/11/19 11:52 Troponin I Quantitative 0.204 ng/mL (0.000-0.055) White Blood Count 9.2 x10^3/uL (4.0-11.0) Red Blood Count 5.34 x10^6/uL (4.30-5.70) Hemoglobin 14.5 g/dL (13.0-17.5) Hematocrit 44.3 % (39.0-53.0) Mean Corpuscular Volume 83 fL (79-100) Mean Corpuscular Hemoglobin 27 pg (25-35) Mean Corpuscular Hemoglobin Concent 33 g/dL (31-37) Red Cell Distribution Width 14.4 % (11.5-14.5) Platelet Count 238 x10^3/uL (140-400) Neutrophils (%) (Auto) 58 % (31-73) Lymphocytes (%) (Auto) 30 % (24-48) Monocytes (%) (Auto) 7 % (0-9) Eosinophils (%) (Auto) 3 % (0-3) Basophils (%) (Auto) 1 % (0-3) Neutrophils # (Auto) 5.4 x10^3/uL (1.8-7.7) Lymphocytes # (Auto) 2.8 x10^3/uL (1.0-4.8) Monocytes # (Auto) 0.7 x10^3/uL (0.0-1.1) Eosinophils # (Auto) 0.3 x10^3/uL (0.0-0.7) Basophils # (Auto) 0.1 x10^3/uL (0.0-0.2) Sodium Level 140 mmol/L (136-145) Potassium Level 4.2 mmol/L (3.5-5.1) Chloride Level 106 mmol/L (98-107) Carbon Dioxide Level 23 mmol/L (21-32) Anion Gap 11 (6-14) Blood Urea Nitrogen 28 mg/dL (8-26) Creatinine 1.9 mg/dL (0.7-1.3) Estimated GFR (Cockcroft-Gault) 43.8 BUN/Creatinine Ratio 15 (6-20) Glucose Level 137 mg/dL (70-99) Calcium Level 8.6 mg/dL (8.5-10.1) Total Bilirubin 0.2 mg/dL (0.2-1.0) Aspartate Amino Transf (AST/SGOT) 17 U/L (15-37) Alanine Aminotransferase (ALT/SGPT) 28 U/L (16-63) Alkaline Phosphatase 58 U/L (46-116) Total Protein 7.3 g/dL (6.4-8.2) Albumin 3.3 g/dL (3.4-5.0) Albumin/Globulin Ratio 0.8 (1.0-1.7) Triglycerides Level 360 mg/dL (0-150) Cholesterol Level 101 mg/dL (0-200) LDL Cholesterol, Calculated 1 mg/dL (0-100) VLDL Cholesterol, Calculated 72 mg/dL (0-40) Non-HDL Cholesterol Calculated 73 mg/dL (0-129) HDL Cholesterol 28 mg/dL (40-60) Cholesterol/HDL Ratio 3.6 Glucose (Fingerstick) 133 mg/dL (70-99) 131 mg/dL (70-99) Laboratory Tests Test 09/10/19 16:55 09/10/19 17:05 09/10/19 20:23 09/10/19 20:25 Glucose (Fingerstick) 123 mg/dL (70-99) 158 mg/dL (70-99) Troponin I Quantitative 0.204 ng/mL (0.000-0.055) 0.204 ng/mL (0.000-0.055) Test 09/11/19 03:20 09/11/19 07:45 09/11/19 11:52 White Blood Count 9.2 x10^3/uL (4.0-11.0) Red Blood Count 5.34 x10^6/uL (4.30-5.70) Hemoglobin 14.5 g/dL (13.0-17.5) Hematocrit 44.3 % (39.0-53.0) Mean Corpuscular Volume 83 fL (79-100) Mean Corpuscular Hemoglobin 27 pg (25-35) Mean Corpuscular Hemoglobin Concent 33 g/dL (31-37) Red Cell Distribution Width 14.4 % (11.5-14.5) Platelet Count 238 x10^3/uL (140-400) Neutrophils (%) (Auto) 58 % (31-73) Lymphocytes (%) (Auto) 30 % (24-48) Monocytes (%) (Auto) 7 % (0-9) Eosinophils (%) (Auto) 3 % (0-3) Basophils (%) (Auto) 1 % (0-3) Neutrophils # (Auto) 5.4 x10^3/uL (1.8-7.7) Lymphocytes # (Auto) 2.8 x10^3/uL (1.0-4.8) Monocytes # (Auto) 0.7 x10^3/uL (0.0-1.1) Eosinophils # (Auto) 0.3 x10^3/uL (0.0-0.7) Basophils # (Auto) 0.1 x10^3/uL (0.0-0.2) Sodium Level 140 mmol/L (136-145) Potassium Level 4.2 mmol/L (3.5-5.1) Chloride Level 106 mmol/L (98-107) Carbon Dioxide Level 23 mmol/L (21-32) Anion Gap 11 (6-14) Blood Urea Nitrogen 28 mg/dL (8-26) Creatinine 1.9 mg/dL (0.7-1.3) Estimated GFR (Cockcroft-Gault) 43.8 BUN/Creatinine Ratio 15 (6-20) Glucose Level 137 mg/dL (70-99) Calcium Level 8.6 mg/dL (8.5-10.1) Total Bilirubin 0.2 mg/dL (0.2-1.0) Aspartate Amino Transf (AST/SGOT) 17 U/L (15-37) Alanine Aminotransferase (ALT/SGPT) 28 U/L (16-63) Alkaline Phosphatase 58 U/L (46-116) Total Protein 7.3 g/dL (6.4-8.2) Albumin 3.3 g/dL (3.4-5.0) Albumin/Globulin Ratio 0.8 (1.0-1.7) Triglycerides Level 360 mg/dL (0-150) Cholesterol Level 101 mg/dL (0-200) LDL Cholesterol, Calculated 1 mg/dL (0-100) VLDL Cholesterol, Calculated 72 mg/dL (0-40) Non-HDL Cholesterol Calculated 73 mg/dL (0-129) HDL Cholesterol 28 mg/dL (40-60) Cholesterol/HDL Ratio 3.6 Glucose (Fingerstick) 133 mg/dL (70-99) 131 mg/dL (70-99) Brief Hospital Course Mr. Walton is a 59 old 1. Discussed anticoagulation. Risks and benefits. OK with eliquis for stroke prevention. [facility] provide discount card. No further home ASA will continue with plavix for his CAD. 2. Continue with metoprolol tartrate at 50 mg po bid. Continue home lisinopril.. Hold home hydralazine/norvasc for now. HBPM bid in the next week and will slowly reintroduce other BP meds as an outpt per BP trend. Unclear if he is still on clonidine, will verify. 3. Continue home statin. Low dose pepcid for GI prophylaxis. 5. There is an atrial level left to right shunt noted on color doppler imaging suggestive of either a PFO or ASD. Will consider for ANKIT as an outpt for further delineation. 6. Outpt stress test. Follow up with Dr. Blue on October 10. September DC per cardiac standpoint. If still on AFIB on his follow up then will arrange for outpt CVN along with ANKIT. Discharge Information Condition at Discharge: Improved Follow Up: Weeks Disposition/Orders: D/C to Home Scheduled Amlodipine Besylate (Amlodipine Besylate) 10 Mg Tablet, 1 TAB PO DAILY, #30 Ref 5 (Reported) Entered as Reported by: MERCEDES CASTRO on 02/02/151831 Last Action: Continued on 09/10/191721 by RAIN QUACH Atorvastatin Calcium (Atorvastatin Calcium) 20 Mg Tablet, 20 MG PO QHS for cholesterol, (Reported) Entered as Reported by: KRISTOPHER SANFORD on 09/10/191554 Last Action: Continued on 09/10/191721 by RAIN QUACH Clonidine Hcl (Clonidine Hcl) 0.2 Mg Tablet, 0.2 MG PO BID, (Reported) Entered as Reported by: MERCEDES CASTRO on 02/02/151831 Last Action: Continued on 09/10/191721 by RAIN QUACH Famotidine (Famotidine) 20 Mg Tablet, 1 TAB PO DAILY for gerd, (Reported) Entered as Reported by: KRISTOPHER SANFORD on 09/10/191554 Last Action: Continued on 09/10/191721 by RAIN QUACH Hydralazine Hcl (Hydralazine Hcl) 50 Mg Tablet, 1 TAB PO BID for htn, (Reported) Entered as Reported by: KRISTOPHER SANFORD on 09/10/191554 Last Action: Continued on 09/10/191721 by RAIN QUACH Lisinopril (Lisinopril) 20 Mg Tablet, 1 TAB PO DAILY, #30 Ref 5 (Reported) Entered as Reported by: MERCEDES CASTRO on 02/02/15 1831 Last Action: Continued on 09/10/191721 by RAIN QUACH Metformin Hcl (Metformin Hcl) 1,000 Mg Tablet, 1 TAB PO BID for glucose, (Reported) Entered as Reported by: KRISTOPHER SANFORD on 09/10/19 1555 Last Action: Converted on 09/10/191721 by RAIN QUACH [Aspirin] 81 MG TABLET., 81 MG PO DAILYWBKFT, #30 Prescribed by: JAYCEE HOLLINS MD on 02/05/15 1242 Last Action: Reviewed on 09/10/191554 by KRISTOPHER SANFORD Patient Instructions Patient Instructions DC home meds changed face to face, under 30 minutes RAIN QUACH MD Sep 11, 2019 13:20
[2019-09-11 15:00] VITALS: BP 141/91
--- NOTE | 2019-09-11 15:12 | NUR ---
SS following for discharge planning. SS reviewed pt chart and discussed with pt RN. Pt is from home with spouse and is currently on room air. Discharge order on the chart for home with self care.
--- NOTE | 2019-09-11 20:52 | NUR ---
Discharge Note: BEN BRISENO [address] Discharge instructions and discharge home medications reviewed with Patient and a copy given. All questions have been answered and understanding verbalized. The following instructions and handouts were given: Follow up with Dr. Blue, new meds (sent to pharmacy) and stopped meds, blood pressure checks twic a day and write them downhyper-hypoglycemia, hyper-hypotension, cardiac and diabetic diet, hypertriglyceridemia. Discontinued lines and drains: IV removed, no lines present on discharge. Patient discharged to home. left by wheelchair to his daughters private vehicle with CASPER Mariscal, RN. discharge done with patient and daughter.
[2019-09-11] MEDS ORDERED: METOPROLOL TART IMMED RELEASE 50 MG TABLET. PO SCH (21:00)
[2019-09-11] MEDS ORDERED: APIXABAN 5 MG TABLET. PO SCH (21:00)
[2019-09-12] MEDS ORDERED: CLOPIDOGREL BISULFATE 75 MG TABLET PO SCH (08:00)
== END 2019-09-11 17:05 | disposition home or self-care (01) | DRG 280 ==
LOC: ER 12:34 → 2 SOUTH 13:45
PROVIDERS: ADMIT Internal Medicine; ATTEND Internal Medicine
DX: I13.0 Hypertensive heart and chronic kidney disease with heart failure and stage 1 through stage 4 chronic kidney disease, or unspecified chronic kidney disease (principal); I21.A1 Myocardial infarction type 2; I50.31 Acute diastolic (congestive) heart failure; E78.5 Hyperlipidemia, unspecified; I25.119 Atherosclerotic heart disease of native coronary artery with unspecified angina pectoris; I48.91 Unspecified atrial fibrillation; N18.3 Chronic kidney disease, stage 3 (moderate); E11.22 Type 2 diabetes mellitus with diabetic chronic kidney disease; M19.90 Unspecified osteoarthritis, unspecified site; K21.9 Gastro-esophageal reflux disease without esophagitis; Z82.49 Family history of ischemic heart disease and other diseases of the circulatory system; Z91.041 Radiographic dye allergy status; Z91.013 Allergy to seafood; Z87.11 Personal history of peptic ulcer disease; Z79.84 Long term (current) use of oral hypoglycemic drugs
CPT/HCPCS: 36415; 71045; 80053; 80061; 82962; 83735; 83880; 84443; 84484; 85025; 93005; 93306; G0480; J1650; J1815; J1885; J3475; J3490; J7030; G0378

== ENCOUNTER → 2019-11-15 | Outpatient (CLI) | payer OTHER ==
[~2019-11-15] MED LIST changes: +APIX5TAB PO; +ATOR20TA58 PO; +CLOP75TA PO; +FAMO20TA5 PO; +HYDR-2869 PO; +METF10007 PO; +METO50TA6 PO; +REGADENOSON 0.4 MG/5 ML DISP.SYRIN. IV ONE
--- NOTE | 2019-11-15 11:41 | RAD ---
MR#: [id number] Date of Study: 11/15/2019 Ordering Physician: HERIBERTO ABDI, Referring Physician: CASE GLOVER Tech: RT Kianna (R) (N) APPROVED REPORT Test Type: Pharmacological Stress Nurse/Tech: Cristóbal Alas RN Test Indications: CAD Cardiac History: CAD, Stent x1, A-fib, HTN, See EMR Medications: See EMR Medical History: DM, See EMR Resting ECG: SR Resting Heart Rate: 52 bpm Resting Blood Pressure: 192/105mmHg Pretest Chest Pain: No chest pain Nurse/Tech Notes Lungs CTA, Heart tones regular. Pt notified of elevated BP. Pt. explained he has an appointment with his dr. Blood pressures of before during and after procedure given to pt, to take to doctors appoint ment. Pt denies pain, headache, dizziness. Pt instructed to take BP meds. Consent: The procedure was explained to the patient in lay terms. Informed consent was witnessed. Eric eout was entered into [facility]. History and Stress Test performed by FIDEL Laguerre Pharm. Details Pharmacologic stress testing was performed using 0.4mg per 5ml of regadenoson given intravenously ove r 7-10 seconds. Stress Symptoms Dyspnea POST EXERCISE Reason for Termination: Infusion complete Max HR: 103 bpm Max Blood Pressure: 196/103mmHg Blood Pressure response to exercise: Normal blood pressure response during stress. Heart Rate response to exercise: WNL Chest Pain: No. Arrhythmia: Yes. frequent PVCs ST Change: No. INTERPRETATION Stress EKG Conclusion: Baseline EKG showed sinus rhythm with anterolateral T wave inversions. Nondia gnostic changes at peak stress. No arrhythmias. Imaging Protocol IMAGE PROTOCOL: Rest Tc-99m/stress Tc-99m 1 day Rest: Stress: Viability: Radiopharm.Tc99m [id number] Sestamibi Dose10.7mCi 32mCi Duration 15min. 10min. Img Date 11/15/2019 11/15/2019 Inj-Img Nfrw39vdz. 60min. Rest Admin Site:IV - Right AntecubitalAdministrator:Clarissa Warren, RT (R)(N) Stress Admin Site: IV - Right AntecubitalAdministrator: FIDEL Laguerre STRESS DATA End Diast. Vol.110.0mlAv. Heart Rate54.0bpm End Syst. Vol.42.0mlCO Index BSA0.0L/min Myocardial Qcyv687.0gEject. Farnmvis28.0% Stress Rates Pk. Fill Rate2.51EDV/secLVtime Pk. Fill 249.71msec Pk. Empty Rate3.33ESV/secLVtime Pk. Gtmyh046.35msec 05/31 Pk. Fill1.03EDV/sec Stress Scores Regional WT3.00Summed WT26.00 Regional WM0.00Summed WM1.00 Study quality was good. Left Ventricular size was Normal at Rest and Stress. Lung uptake was . Left Ventricular ejection fraction is 57%. The rest and stress images show normal perfusion, normal contraction and thickening. LV Perf. Quant 17 Seg. SSS0.00 17 Seg. SRS2.00 17 Seg. SDS0.00 Stress Defect Extent (% LAD)0.00Rest Defect Extent (% LAD)0.00Rev. Defect Extent (% LAD)0.00 Stress Defect Extent (% LCX) 0.00Rest Defect Extent (% LCX)1.30Rev. Defect Extent (% LCX)0.00 Stress Defect Extent (% RCA)0.00Rest Defect Extent (% RCA)0.00Rev. Defect Extent (% RCA)0.00 Stress Defect Extent (% IAN)0.00Rest Defect Extent (% IAN)1.30Rev. Defect Extent (% IAN)0.00 Conclusion 1. Regadenoson cardioisotope stress test did not show any evidence of ischemia or infarct. 2. Normal left ventricular systolic function with ejection fraction calculated at 57%. 3. Low risk for cardiac events. Signed by : Alexsander Arellano, Electronically Approved : 11/15/2019 11:40:44
== END ==
LOC: NM 13:35
PROVIDERS: ATTEND Internal Medicine Cardiovascular Disease
DX: I25.10 Atherosclerotic heart disease of native coronary artery without angina pectoris (principal)
CPT/HCPCS: 78452; 93017; A9500; J2785

== ENCOUNTER → 2021-05-13 | Outpatient (CLI) | payer OTHER ==
[~2021-05-13] MED LIST changes: +AMLO-187 PO; -AMLO10TA8 PO; -LISI-334 PO; +LISI20TA18 PO; -REGADENOSON 0.4 MG/5 ML DISP.SYRIN. IV ONE
[2021-05-13 08:42] LABS: ALBUMIN 3.5 g/dL (3.4-5.0); ALBUMIN/GLOBULIN RATIO 0.9 (1.0-1.7); CALCIUM 9.1 mg/dL (8.5-10.1); CHOLESTEROL/HDL RATIO 2.3; CREATININE 1.5 mg/dL (0.7-1.3); GFR 57.4; TOTAL BILIRUBIN 0.2 mg/dL (0.2-1.0); TOTAL PROTEIN 7.5 g/dL (6.4-8.2)
[2021-05-13 08:43] LABS: POTASSIUM 5.3 mmol/L (3.5-5.1)
--- NOTE | 2021-05-13 16:51 | CARD ---
MR#: [id number] Date of Study: 05/13/2021 Ordering Physician: HERIBERTO ABDI, Referring Physician: HERIBERTO ABDI, Tech: Eli Boorolansary, [facility] APPROVED REPORT EXAM: Two-dimensional and M-mode echocardiogram with Doppler and color Doppler. Other Information Quality : AverageHR: 60bpm INDICATION Hypertension/HCVD Patent Foramen Ovale RISK FACTORS Hyperlipidemia Diabetes 2D DIMENSIONS RVDd3.3 (2.9-3.5cm)Left Atrium(2D)3.6 (1.6-4.0cm) IVSd1.4 (0.7-1.1cm)Aortic Root(2D)3.4 (2.0-3.7cm) LVDd4.9 (3.9-5.9cm)LVOT Diameter2.1 (1.8-2.4cm) PWd1.2 (0.7-1.1cm)LVDs2.6 (2.5-4.0cm) FS (%) 46.0 %SV86.9 ml LVEF(%)77.3 (>50%) Aortic Valve AoV Peak Miguel.122.0cm/sAoV VTI27.4cm AO Peak GR.5.9mmHgLVOT Peak Miguel.105.6cm/s LVOT VTI 23.99cmAO Mean GR.3mmHg SETH (VMAX)2.18oj9PRQ (VTI)3.04cm2 AI P 1/2 [id number] Mitral Valve MV E Suiljamf34.3cm/sMV DECEL QHLB133tj MV A Ljogeoti49.4cm/sMV VRJ85xv E/A Ratio1.2MVA (PHT)3.03cm2 TDI E/Lateral E'11.3E/Medial E'11.1 Pulmonary Valve PV Peak Tvfaxuzs63.6cm/sPV Peak Grad.3mmHg Tricuspid Valve TR P. Vqkoutvs753tn/sRAP UYAEXPNG2tsYk TR Peak Gr.21szFuRNRY78brLt Pulmonary Vein S1 Xdimihlt14.3cm/sD2 Yojrhkfv95.7cm/s PVa [id number] LEFT VENTRICLE The left ventricle is normal size. There is mild to moderate concentric left ventricular hypertrophy. The left ventricular systolic function is normal. The Ejection Fraction is 55-60%. There is normal L V segmental wall motion. Transmitral Doppler flow pattern is Grade II-pseudonormal filling dynamics. RIGHT VENTRICLE The right ventricle is mildly dilated. There is normal right ventricular wall thickness. The right ve ntricular systolic function is normal. ATRIA The left atrium size is normal. The right atrium is mildly dilated. The subcostal views show the appe arance of a PFO. AORTIC VALVE The aortic valve is normal in structure and function. Doppler and Color Flow revealed trace aortic re gurgitation. There is no significant aortic valvular stenosis. Calculated aortic valve area is 2.39 c m2 with maximum pressure gradient of 8 mmHg and mean pressure gradient of 4 mmHg. MITRAL VALVE The mitral valve is normal in structure and function. There is no evidence of mitral valve prolapse. There is no mitral valve stenosis. Doppler and Color-flow revealed trace mitral regurgitation. TRICUSPID VALVE The tricuspid valve is normal in structure and function. Doppler and Color Flow revealed trace tricus pid regurgitation with an estimated PAP of 31 mmHg. There is no tricuspid valve stenosis. PULMONIC VALVE The pulmonic valve is not well visualized. Doppler and Color Flow revealed trace pulmonic valvular re gurgitation. GREAT VESSELS The aortic root is normal in size. The IVC is normal in size and collapses >50% with inspiration. PERICARDIAL EFFUSION There is no evidence of significant pericardial effusion. Critical Notification Critical Value: No <Conclusion> The left ventricular systolic function is normal. The Ejection Fraction is 55-60%. There is normal LV segmental wall motion. Transmitral Doppler flow pattern is Grade II-pseudonormal filling dynamics. Trace mitral regurgitation. Trace tricuspid regurgitation with an estimated PAP of 31 mmHg. There is no evidence of significant pericardial effusion. Signed by : Alexsander Arellano, Electronically Approved : 05/13/2021 16:50:50
--- NOTE | 2021-05-13 17:05 | RAD ---
MR#: [id number] Date of Study: 05/13/2021 Ordering Physician: HERIBERTO ABDI, Referring Physician: HERIBERTO ABDI, Tech: Eli Hugo, RONALD, RVT, RTR APPROVED REPORT Patient Location: OUT-PATIENT Indications RESISTANT HTN Renal Artery Doppler Right Renal Artery Left Renal Arter y Proximal 120.0/31.8 cm/secProximal 92.7/23.6 cm/sec Mid 94.6/30.2 cm/secMid 117.3/37.3 cm/sec Distal 59.6/20.7 cm/secDistal 99.1/29.1 cm/sec Renal/Aorta Ratio 0.00Renal/Aorta Ratio 1.50 Prox. Resistive Index 0.74Prox. Resistive Index 0.75 Mid Resistive Index 0.68Mid Resistive Index 0.68 Distal Resistive Index 0.65Distal Resistive Index 0.71 Rt. Segmental A. 36.9/13.0 cm/secLt. Segmental A. 26.4/9.2 cm/sec Aortic Doppler VelocityWaveform Mid. Aorta 75.4 cm/sec Findings Grayscale images of abdominal aorta showed mild diffuse atherosclerosis without any aneurysmal dilata tion. Spectral waveform and color duplex analysis showed normal velocities without any stenosis. Grayscale images of the kidneys showed small renal cysts bilaterally. The right kidney measured 8.46 cm and left kidney measured 9.5 cm. Spectral waveform and color duplex analysis of proximal, mid and distal segments of renal arteries bilaterally showed normal velocities without any significant stenos is. The renal indices and renal artery to aortic ratios were normal bilaterally. Critical Notification Critical Value: No <Conclusion> No significant renal artery stenosis bilaterally. Incidental finding of small renal cysts noted. Signed by : Alexsander Arellano, Electronically Approved : 05/13/2021 17:04:30
== END ==
LOC: US 08:21
PROVIDERS: ATTEND Internal Medicine Cardiovascular Disease
DX: I70.1 Atherosclerosis of renal artery (principal); I51.7 Cardiomegaly; I10 Essential (primary) hypertension; Q21.1 Atrial septal defect
CPT/HCPCS: 80053; 80061; 82088; 84244; 93306; 93975